=== PATIENT | male | born 1935 | race Caucasian/White ===

== ENCOUNTER 2017-07-06 12:40 | Day surgery (SDC) | payer MEDICARE, OTHER ==
[2017-07-06 13:23] VITALS: BP 160/101; PULSE 105; RESP 20; TEMP 98.8; O2SAT 98
[2017-07-06] MEDS ORDERED: LISI-515 PO (13:37)
[2017-07-06] MEDS ORDERED: CLON0.1T PO (13:37)
[2017-07-06] MEDS ORDERED: METO50TA PO (13:37)
[2017-07-06] MEDS ORDERED: HYDR12.57 PO (13:37)
[2017-07-06] MEDS ORDERED: ATEN50TA PO (13:37)
[2017-07-06] MEDS ORDERED: PRAD75CA PO (13:37)
[2017-07-06] MEDS ORDERED: GABA100C4 PO (13:37)
[2017-07-06] MEDS ORDERED: TYLE325T PO (13:37)
== END 2017-07-06 15:30 | disposition home or self-care (01) ==
LOC: HROP 12:40 → HRIP 12:43 → HROP 15:30
PROVIDERS: ATTEND Orthopaedic Surgery
DX: M16.11 Unilateral primary osteoarthritis, right hip (principal); R26.2 Difficulty in walking, not elsewhere classified; Z53.9 Procedure and treatment not carried out, unspecified reason

== ENCOUNTER 2017-07-09 12:24 | Day surgery (SDC) | payer MEDICARE, OTHER ==
[~2017-07-09 12:24] MED LIST: ATEN50TA PO; CLON0.1T PO; GABA100C4 PO; HYDR12.57 PO; LISI-515 PO; METO50TA PO; PRAD75CA PO; TYLE325T PO
[2017-07-09] MEDS ORDERED: IOHEXOL 350 MG/ML 50 ML BTL (for RAD DIAG) OTHER ONE (12:25)
[2017-07-09 12:50] VITALS: BP 170/92; PULSE 126; RESP 22; TEMP 98; O2SAT 99
[2017-07-09] MEDS ORDERED: SODIUM CHLORIDE 0.9% INJ 10 ML ONE (14:16)
--- NOTE | 2017-07-09 14:34 | PD.RAD ---
Post Procedure Progress Note Pre Procedure Diagnosis: (1) Right hip pain Post Procedure Diagnosis: (1) Right hip pain Procedure Date: Jul 09, 2017 Supervising Radiologist: Rickey Cazares JR Anesthesia: Local Plan of Activity Patient to Unit: [facility] Patient Condition: Good See PACS Report for procedural detail/treatment Drainage Procedure Procedure 1 Side: Right Procedure Type: Aspiration Fluid Description: Clear Findings: Fluoro guided right hip aspiration yielded clear, straw-colored fluid. Sample sent to micro. Pt to return to IR on for steroid injection if culture is negative Plan Resume Pradaxa Call sunday to [facility] to see if culture is negative injection will be done without withholding Pradaxa Jr. Sage,Rickey Garcia MD Jul 09, 2017 14:34
--- NOTE | 2017-07-09 15:13 | RADRPT ---
EXAM DATE/TIME: 07/09/2017 14:09 [facility] COMPARISON: No previous studies available for comparison. INDICATIONS : Patient with a history of chronic right hip pain. MEDICAL HISTORY : HTN Arthritis A-fib SURGICAL HISTORY : Right rotator cuff Left ankle surgery ENCOUNTER: Initial ACUITY: >1 year PAIN SCORE: 3/10 LOCATION: Right Hip FLUORO TIME: 0.7 minutes IMAGE SERIES: 1 CONTRAST: 3 cc Omnipaque 350 DEVICE(S): 22 gauge needle was placed into the right hip joint. RESPONSE: Pre procedure pain level was 3/10 Post procedure pain level was 3/10 FLUID: Total volume of 1 cc of clear yellow fluid was removed. Fluid specimen was submitted to the lab for evaluation. PROCEDURE : 1. Fluoroscopically guided right hip aspiration. The risks, benefits and alternatives to the procedure were explained and verbal and written consent w as obtained. The site was prepped in sterile fashion. Full sterile technique was used, including ca p, mask, sterile gloves and gown and a large sterile sheet. Hand hygiene and 2% chlorhexidine and/or betadine/alcohol prep was utilized per protocol for cutaneous antisepsis. The skin and subcutaneous tissues were infiltrated with local anesthetic solution. Utilizing an oblique anterior approach a 22 gauge spinal needle was passed into the right hip joint u nder fluoroscopic control. Aspiration yielded approximately 1 mL of clear straw-colored fluid. Inject ion of contrast was performed to confirm intra-articular position of the needle. The patient tolerated the procedure well and there were no complications. CONCLUSION: Uncomplicated aspiration of the right hip as above. The culture is now pending. Following the results of the culture the right hip steroid injection will be scheduled. The patient is on Predaxa which wi ll resume today. The steroid injection will be performed without with holding the Predaxa. Rickey Cazares Jr., MD on July 09, 2017 at 15:09 Board Certified Radiologist. This report was verified electronically.
[2017-07-09 16:34] LABS: WBC, SYNOVIAL FLUID 9 /MM3 (0-200)
== END 2017-07-09 14:55 | disposition home or self-care (01) ==
LOC: HROP 12:24 → HRIP 12:25 → HROP 14:55
PROVIDERS: ATTEND Orthopaedic Surgery
DX: M25.551 Pain in right hip (principal); G89.29 Other chronic pain; I10 Essential (primary) hypertension; I48.91 Unspecified atrial fibrillation
CPT/HCPCS: 20610; 87015; 87070; 87102; 87116; 87205; 87206; 89051; Q9967

== ENCOUNTER 2017-07-12 12:34 | Day surgery (SDC) | payer MEDICARE, OTHER ==
[2017-07-12 13:10] VITALS: BP 146/89; PULSE 63; RESP 20; TEMP 98.1; O2SAT 97
[2017-07-12] MEDS ORDERED: TRIAMCINOLONE ACETONIDE 40 MG/ML VIAL ONE (13:54)
[2017-07-12] MEDS ORDERED: ROPIVACAINE 1% PF INJ 20 ML AMP ONE (13:54)
--- NOTE | 2017-07-12 14:24 | PD.RAD ---
Post Procedure Progress Note Pre Procedure Diagnosis: (1) Right hip pain Post Procedure Diagnosis: (1) Right hip pain Procedure Date: Jul 12, 2017 Supervising Radiologist: Rickey Cazares JR Proceduralist/Assist: RT Veronika(R), RT Zora(R)() Anesthesia: Local Plan of Activity Patient to Unit: [facility] Patient Condition: Good Additional Comments: Right hip cultures are negative. Right hip steroid injection performed without difficulty See PACS Report for procedural detail/treatment Jr. Sage,Rickey Garcia MD Jul 12, 2017 14:24
[2017-07-12 14:29] VITALS: BP 176/90; PULSE 61; RESP 18; TEMP 99.1; O2SAT 96
--- NOTE | 2017-07-12 16:41 | RADRPT ---
EXAM DATE/TIME: 07/12/2017 14:18 [facility] COMPARISON: No previous studies available for comparison. INDICATIONS : Patient with right hip pain in need of steroidal injection. MEDICAL HISTORY : 1.Hip pain 5 years 2.HTN 3.AFIB 4.Arthritis 5.Pneumonia SURGICAL HISTORY : 1.Left ankle fusion 2.Right rotator cuff surgery ENCOUNTER: Subsequent ACUITY: >1 year PAIN SCORE: 4/10 Right Hip. FLUORO TIME: 0.9 IMAGE SERIES: 1 CONTRAST: 1cc Omnipaque (iohexol) 350 DEVICE: 22 gauge needle was placed into the right hip joint MEDICATIONS: 1.) 5 cc Lidocaine IA 2.) 4 cc ropivacaine (Naropin) IA 3.) 40mg triamcinolone (Kenalog) IA RESPONSE: Pre procedure pain level was 4/10. Post procedure pain level was 4/10. PROCEDURE : The risks, benefits and alternatives to the procedure were explained and verbal and written consent w as obtained. The site was prepped in sterile fashion. Full sterile technique was used, including ca p, mask, sterile gloves and gown and a large sterile sheet. Hand hygiene and 2% chlorhexidine and/or betadine/alcohol prep was utilized per protocol for cutaneous antisepsis. The skin and subcutaneous tissues were infiltrated with local anesthetic solution. Under sterile conditions and using aseptic technique with fluoroscopic guidance the joint was punctur ed via an anterior oblique approach and positive contrast was injected to confirm intra-articular pos ition. Following this, the prescribed mixture of Kenalog and local anesthetics was injected. The pa tient tolerated the procedure well and there were no complications. CONCLUSION: Uncomplicated therapeutic right hip injection performed under fluoroscopic guidance. Rickey Cazares Jr., MD on July 12, 2017 at 16:37 Board Certified Radiologist. This report was verified electronically.
== END 2017-07-12 15:07 | disposition home or self-care (01) ==
LOC: HROP 12:34 → HRIP 12:36 → HROP 15:07
PROVIDERS: ATTEND Orthopaedic Surgery
DX: M25.551 Pain in right hip (principal)
CPT/HCPCS: 20610; 77002; J2795; J3301